=== PATIENT | male | born 1955 | race Native Hawaiian/Other Pacific Islander ===

== ENCOUNTER 2017-11-09 21:21 | Observation (INO) | payer OTHER ==
[~2017-11-09] VITALS: Ht 162.6 cm; Wt 71.4 kg
[2017-11-09 21:35] VITALS: BP 151/80; TEMP 98.1
[2017-11-09 22:04] LABS: PLATELET COUNT 136 K/uL (142-355)
[2017-11-09 22:13] LABS: POTASSIUM 3.7 mmol/L (3.6-5.2)
[2017-11-09 22:46] VITALS: BP 120/81
[2017-11-10 04:39] VITALS: BP 143/77; TEMP 98.5; Ht 162.6 cm; Wt 71.4 kg
[2017-11-10 07:46] VITALS: BP 139/81; TEMP 98.8
[2017-11-10 10:43] LABS: PLATELET COUNT 121 K/uL (142-355)
[2017-11-10 10:58] LABS: POTASSIUM 3.7 mmol/L (3.6-5.2)
[2017-11-10 11:33] VITALS: BP 153/77; TEMP 98.9
[2017-11-10 16:00] VITALS: BP 171/85
[2017-11-10 19:59] VITALS: BP 163/80; TEMP 98.8
[2017-11-10 23:59] VITALS: BP 162/80; TEMP 98.7
[2017-11-11 04:00] VITALS: BP 171/98; TEMP 97.9
[2017-11-11 07:46] VITALS: BP 174/79; TEMP 98.1
[2017-11-11 08:03] LABS: PLATELET COUNT 122 K/uL (142-355)
[2017-11-11 08:29] LABS: POTASSIUM 4.2 mmol/L (3.6-5.2)
--- NOTE | 2017-11-11 11:29 | NUR ---
PATIENT'S IV INFILTRATED. PATIENT'S IV FLUIDS STOPPED AT THIS TIME. PATIENT'S IV REMOVED WITH CATHETER TIP INTACT. NO REDNESS NOTED AND PATIENT TOLERATED WELL.
[2017-11-11 11:50] VITALS: BP 179/86; TEMP 98.1
== END 2017-11-11 13:30 | disposition home or self-care (01) ==
LOC: ED 21:21 → MED/SURG 22:50
PROVIDERS: Emergency Medicine
DX: F10.229 Alcohol dependence with intoxication, unspecified (principal); Y90.8 Blood alcohol level of 240 mg/100 ml or more; E11.9 Type 2 diabetes mellitus without complications
CPT/HCPCS: 36415; 80048; 80053; 80307; 80320; 81000; 82150; 82948; 83690; 83735; 85027; 96360; 96361; 96365; 96366; 96374; 96375; 99220; 99284; G0378; J1650; J2405; J3411; J3490

== ENCOUNTER 2017-11-15 08:56 | Emergency (ER) | payer OTHER ==
[~2017-11-15] VITALS: Ht 162.6 cm; Wt 71.2 kg
[2017-11-15 09:04] VITALS: TEMP 97.3
[2017-11-15 09:58] LABS: PLATELET COUNT 160 K/uL (142-355)
[2017-11-15 10:15] LABS: POTASSIUM 3.8 mmol/L (3.6-5.2)
[2017-11-15 11:30] VITALS: BP 125/77
== END 2017-11-15 11:30 | disposition home or self-care (01) ==
LOC: ED 08:56
PROVIDERS: Emergency Medicine
DX: M47.892 Other spondylosis, cervical region (principal); M54.12 Radiculopathy, cervical region
CPT/HCPCS: 36415; 80053; 80307; 81000; 85027; 99283